=== PATIENT | male | born 1980 | race Caucasian/White ===

== ENCOUNTER 2016-06-04 14:00 | Outpatient (CLI) | payer BC, OTHER | END 2016-06-04 14:01 | disposition home or self-care (01) | DX: Z00.00 Encounter for general adult medical examination without abnormal findings (principal) ==

== ENCOUNTER 2017-03-03 08:00 | Outpatient (CLI) | payer BC, OTHER ==
[2017-03-03 19:00] LABS: BASOPHILS % (AUTO) 0.7 %; EOSINOPHILS % (AUTO) 0.2 %; HCT - HEMATOCRIT 42.7 % (42.0-52.0); HGB - HEMOGLOBIN 14.3 g/dL (14.0-18.0); LYMPHOCYTES # (AUTO) 2.3 10^3/uL (1.5-3.5); LYMPHOCYTES % (AUTO) 31.4 %; MEAN CORPUSCULAR HGB CONC 33.4 g/dL (32.0-36.0); MEAN CORPUSCULAR VOLUME 77.7 fL (80.0-94.0); MEAN PLATELET VOLUME 7.3 fL (7.4-11.4); MONOCYTES # (AUTO) 0.8 10^3/uL (0.0-1.0); MONOCYTES % (AUTO) 10.9 %; NEUTROPHILS # (AUTO) 4.2 10^3/uL (1.5-6.6); NEUTROPHILS % (AUTO) 56.8 %; NUCLEATED RED BLOOD CELLS AUTO 0.1 /100WBC; RED BLOOD COUNT 5.49 10^6/uL (4.70-6.10); UNCORRECTED WHITE BLOOD COUNT 7.4 x10^3/uL; WHITE BLOOD COUNT 7.4 x10^3/uL (4.8-10.8)
[2017-03-03 19:08] LABS: H. PYLORI IGG ANTIBODY POSITIVE (Negative); HPYLORI NEG QC Negative (Negative); HPYLORI POS QC POSITIVE (Positive)
[2017-03-03 19:22] LABS: ALBUMIN/GLOBULIN RATIO 1.2 (1.0-2.2); BILIRUBIN,TOTAL 0.3 mg/dL (0.2-1.0); CALCIUM 9.1 mg/dL (8.5-10.3); CREATININE 0.7 mg/dL (0.6-1.2); POTASSIUM 4.2 mmol/L (3.5-5.0); TOTAL PROTEIN 7.8 g/dL (6.7-8.2)
== END 2017-03-03 08:01 | disposition home or self-care (01) ==
LOC: LAB.WCP 08:00
PROVIDERS: ATTEND Family Medicine
DX: R10.9 Unspecified abdominal pain (principal); R19.7 Diarrhea, unspecified
CPT/HCPCS: 36415; 80053; 82150; 83690; 85025; 87339

== ENCOUNTER 2018-07-06 09:50 | Outpatient (CLI) | payer BC ==
--- NOTE | 2018-07-06 17:05 | XRAY Report ---
Reason: RIB PAIN,LEFT SIDED Procedure Date: 07/06/2018 Accession Number: [id number] / [id number] Procedure: WCP - Ribs 2 View LT CPT Code: FULL RESULT: EXAM: LEFT RIB RADIOGRAPHY EXAM DATE: 07/06/2018 10:02 AM. CLINICAL HISTORY: RIB PAIN,LEFT SIDED. COMPARISON: None. TECHNIQUE: 2 views. FINDINGS: Bones: No acute displaced fractures. Lungs: No dense consolidation. No pneumothorax or pleural effusions. Mediastinum: Visible contours are unremarkable Other: None. IMPRESSION: No acute radiographic abnormalities. RADIA
== END 2018-07-06 09:51 | disposition home or self-care (01) ==
LOC: DI.WCP 09:50
PROVIDERS: ATTEND Physician Assistant
DX: R07.81 Pleurodynia (principal)

== ENCOUNTER 2018-09-01 13:38 | Outpatient (CLI) | payer BC ==
--- NOTE | 2018-09-01 15:44 | XRAY Report ---
Reason: PAIN IN LEFT SHOULDER Procedure Date: 09/01/2018 Accession Number: [id number] / [id number] Procedure: WCP - Shoulder 2 View LT CPT Code: FULL RESULT: EXAM: LEFT SHOULDER RADIOGRAPHY EXAM DATE: 09/01/2018 01:47 PM. CLINICAL HISTORY: PAIN IN LEFT SHOULDER. COMPARISON: None. TECHNIQUE: 2 views. FINDINGS: Bones: Normal. No fracture or bone lesion. Joints: The glenohumeral and acromioclavicular joints are normal. Soft tissues: The visualized hemithorax is unremarkable. No soft tissue swelling. IMPRESSION: Negative shoulder radiography. RADIA
== END 2018-09-01 13:39 | disposition home or self-care (01) ==
LOC: DI.WCP 13:38
PROVIDERS: ATTEND Family Medicine
DX: M25.512 Pain in left shoulder (principal)

== ENCOUNTER 2018-11-24 11:27 | Day surgery (SDC) | payer BC ==
[2018-11-24] MEDS ORDERED: LACTATED RINGERS 1,000 ML IV ONE (11:51)
[2018-11-24] MEDS ORDERED: fentaNYL 250 MCG/5 ML VIAL IVP ONE (13:23)
[2018-11-24] MEDS ORDERED: MIDAZOLAM 2 MG/2 ML VIAL IVP ONE (13:23)
[2018-11-24 14:53] VITALS: BP 120/63
== END 2018-11-24 11:28 | disposition home or self-care (01) ==
LOC: SDS 11:27
PROVIDERS: ATTEND Surgery
PROC: 0DJD8ZZ Inspection of Lower Intestinal Tract, Via Natural or Artificial Opening Endoscopic (ICD-10-PCS; principal; 2018-11-24 12:45)
DX: Z12.11 Encounter for screening for malignant neoplasm of colon (principal); K58.0 Irritable bowel syndrome with diarrhea; E66.9 Obesity, unspecified; Z15.09 Genetic susceptibility to other malignant neoplasm; Z68.34 Body mass index [BMI] 34.0-34.9, adult
CPT/HCPCS: 45378; J3010; J7120

== ENCOUNTER 2019-12-08 08:20 | Outpatient (CLI) | payer OTHER | END 2019-12-08 08:21 | disposition home or self-care (01) | LOC: COV 08:20 | PROVIDERS: ATTEND Family Medicine | DX: R05 Cough (principal); M79.10 Myalgia, unspecified site; R53.83 Other fatigue; R07.0 Pain in throat; Z20.828 Contact with and (suspected) exposure to other viral communicable diseases ==

== ENCOUNTER 2020-10-17 05:04 | Emergency (ER) | payer OTHER ==
[2020-10-17 05:16] VITALS: BP 125/79
--- NOTE | 2020-10-17 05:22 | ED Physician Documentation ---
PD HPI UPPER EXT INJURY - Stated complaint Stated Complaint: RING STUCK - Chief complaint Chief Complaint: General - History obtained from History obtained from: Patient - History of Present Illness Location: Left, Finger (ring finger swelling with tight ring.) Type of injury: Other (Patient has a history of reasonably frequent year to carry L angioedema that a treats with medication at home. He typically sleeps without a ring just in case but had kept it on last night. He awoke with some swelling and itching,with finger swollen from ring.). No: Fall, Twist Timing - onset: Today Review of Systems Neurologic: denies: Focal weakness, Numbness PD PAST MEDICAL HISTORY - Past Medical History Past Medical History: Yes Cardiovascular: None Respiratory: Asthma Endocrine/Autoimmune: None GI: GERD : None HEENT: Other Psych: Depression Musculoskeletal: None Derm: None Other Past Medical History: Chronic idiopathic uticaria - Past Surgical History Past Surgical History: Yes General: Colonoscopy - Present Medications Home Medications: Ambulatory Orders Medication Instructions Recorded Confirmed Esomeprazole Magnesium [Nexium] 40 mg PO DAILY 10/29/15 10/17/20 Fexofenadine HCl [Leyla Allergy] 180 mg PO DAILY 10/29/15 10/17/20 Tranylcypromine Sulfate [Parnate] 30 mg PO Q8HR 10/29/15 10/17/20 lamoTRIgine [LaMICtal] 300 mg PO DAILY 10/29/15 10/17/20 traZODone [Desyrel] 100 mg PO HS 10/29/15 10/17/20 Cetirizine [ZyrTEC] 10 mg PO DAILY 11/23/18 10/17/20 - Allergies Allergies/Adverse Reactions: Allergies Allergy/AdvReac Type Severity Reaction Status Date / Time meperidine HCl * AdvReac Unknown Verified 10/17/20 05:19 [From Demerol] - Social History Does the pt smoke?: No Smoking Status: Never smoker Does the pt drink ETOH?: No Does the pt have substance abuse?: No - Immunizations Immunizations are current?: Yes PD ED PE NORMAL - Vitals Vital signs reviewed: Yes - General General: Alert and oriented X 3, No acute distress, Well developed/nourished - HEENT HEENT: Other (no oral angioedema. ) - Respiratory Respiratory: No respiratory distress, Clear bilaterally - Derm Derm: Normal color, Warm and dry, Other (mild general hives.) - Extremities Extremities: Other (The left ring finger shows moderate swelling with his normal ring in place. There does not seem to be too much swelling to anticipate getting the ring off with just wrapping or lubrication. He is okay with cutting it off.) - Neuro Neuro: No motor deficit, No sensory deficit, Other (mild julius color of skin distal to the ring. ) Results - Vitals Vitals: Vital Signs - 24 hr 10/17/20 05:14 Temperature 36.6 C Heart Rate 98 Respiratory 18 Rate Blood Pressure 125/79 O2 Saturation 100 Oxygen O2 Source Room air PD MEDICAL DECISION MAKING - ED course Complexity details: considered differential (The ring is cut off by technology solutions architect without any complications. He states he did not need any extra medications for his hives; has meds at home for it. ), d/w patient Departure - Departure Disposition: 01 Home, Self Care Clinical Impression: Urticaria, Ring or other jewelry causing external constriction, initial encounter, Finger swelling Condition: Stable Record reviewed to determine appropriate education?: Yes Follow-Up: Theresa Lindsey DO [Primary Care Provider] - Comments: Continue usual medications. A jeweler should be able to restore the ring back with minimal blemishing. You could also consider a silicone type ring as an alternative or backup. Discharge Date/Time: 10/17/20 06:18
== END 2020-10-17 06:18 | disposition home or self-care (01) ==
LOC: ED 05:04
DX: S60.445A External constriction of left ring finger, initial encounter (principal); W49.04XA Ring or other jewelry causing external constriction, initial encounter; L50.1 Idiopathic urticaria
CPT/HCPCS: 99282

== ENCOUNTER 2022-02-02 09:13 | Outpatient (CLI) | payer OTHER ==
[2022-02-02 09:36] LABS: BASOPHILS % (AUTO) 0.1 %; EOSINOPHILS % (AUTO) 0.1 %; HCT - HEMATOCRIT 44.5 % (42.0-52.0); HGB - HEMOGLOBIN 14.9 g/dL (14.0-18.0); LYMPHOCYTES # (AUTO) 2.2 10^3/uL (1.5-3.5); LYMPHOCYTES % (AUTO) 29.6 %; MEAN CORPUSCULAR HEMOGLOBIN 27.5 pg (27.0-31.0); MEAN CORPUSCULAR HGB CONC 33.5 g/dL (32.0-36.0); MEAN CORPUSCULAR VOLUME 82.3 fL (80.0-94.0); MEAN PLATELET VOLUME 8.7 fL (7.4-11.4); MONOCYTES # (AUTO) 0.7 10^3/uL (0.0-1.0); MONOCYTES % (AUTO) 9.1 %; NEUTROPHILS # (AUTO) 4.6 10^3/uL (1.5-6.6); NEUTROPHILS % (AUTO) 60.2 %; PLT - PLATELET COUNT 244 10^3/uL (130-450); RED BLOOD COUNT 5.41 10^6/uL (4.70-6.10); RED CELL DISTRIBUTION WIDTH 13.4 % (12.0-15.0); WHITE BLOOD COUNT 7.6 x10^3/uL (4.8-10.8)
[2022-02-02 09:49] LABS: BILIRUBIN,URINE NEGATIVE (NEGATIVE); GLUCOSE, URINE (UA) NEGATIVE (NEGATIVE); KETONES,URINE (UA) NEGATIVE (NEGATIVE); LEUKOCYTE ESTERASE, URINE NEGATIVE (NEGATIVE); NITRITE,URINE NEGATIVE (NEGATIVE); OCCULT BLOOD,URINE NEGATIVE (NEGATIVE); PROTEIN,URINE NEGATIVE (NEGATIVE); UROBILINOGEN,URINE 0.2 (NORMAL) E.U./dL (NORMAL)
[2022-02-02 09:57] LABS: % IRON SATURATION 16 % (20-50); ALBUMIN 4.3 g/dL (3.2-5.5); ALBUMIN/GLOBULIN RATIO 1.2 (1.0-2.2); ALKALINE PHOSPHATASE 74 IU/L (42-121); ALT ALANINE AMINOTRANSFERASE 64 IU/L (10-60); AST ASPARTATE AMINOTRANSFERASE 44 IU/L (10-42); BILIRUBIN,TOTAL 0.6 mg/dL (0.2-1.0); BUN - BLOOD UREA NITROGEN 15 mg/dL (6-20); CALCIUM 9.4 mg/dL (8.5-10.3); CARBON DIOXIDE - CO2 27 mmol/L (21-32); CHLORIDE 103 mmol/L (101-111); CHOL/HDL RATIO 4.4 (<5.0); CHOLESTEROL 226 mg/dL; CREATININE 0.9 mg/dL (0.6-1.2); GFR - MDRD 93 (>89); GLUCOSE 90 mg/dL (70-100); HDL CHOLESTEROL 51 mg/dL; IRON 69 ug/dL (45-182); LDL CHOLESTEROL,CALCULATED 151 mg/dL; POTASSIUM 4.1 mmol/L (3.5-5.0); SODIUM 138 mmol/L (135-145); TOTAL IRON BINDING CAPACITY 431 ug/dL (250-450); TOTAL PROTEIN 7.8 g/dL (6.7-8.2); TRANSFERRIN 308 mg/dL (180-329); TRIGLYCERIDES 122 mg/dL; VLDL CHOLESTEROL 24 mg/dL
[2022-02-02 10:02] LABS: BACTERIA,URINE Rare /HPF (None Seen); CLARITY,URINE CLEAR (CLEAR); MUCUS,URINE Few Strands; RBC,URINE 0-5 /HPF (0-5); SQUAMOUS EPITHELIAL CELL,UR RARE Squamous (<= Few); WBC,URINE 0-3 /HPF (0-3)
[2022-02-02 10:06] LABS: THYROID STIMULATING HORMONE 1.77 uIU/mL (0.34-5.60)
[2022-02-02 10:12] LABS: FERRITIN 58.2 ng/mL (23.9-336.2)
== END 2022-02-02 09:14 | disposition home or self-care (01) ==
LOC: LAB 09:13
PROVIDERS: ATTEND Physician Assistant
DX: D50.9 Iron deficiency anemia, unspecified (principal); Z68.38 Body mass index [BMI] 38.0-38.9, adult; Z15.09 Genetic susceptibility to other malignant neoplasm; Z13.220 Encounter for screening for lipoid disorders; Z12.5 Encounter for screening for malignant neoplasm of prostate
CPT/HCPCS: 36415; 80053; 80061; 81001; 82728; 83540; 83721; 84153; 84443; 84466; 85025

== ENCOUNTER 2022-04-29 08:05 | Day surgery (SDC) | payer OTHER ==
[2022-04-29] MEDS ORDERED: LACTATED RINGERS 1,000 ML IV ONE (08:23)
--- NOTE | 2022-04-29 08:53 | ANESTHESIA ---
Pre-Anesthesia VS, & Labs - Diagnosis ceron syndrome, screening colonoscopy, GERD - Procedure colonoscopy, EGD Vital Signs: Temp Pulse Resp BP Pulse Ox O2 Flow Rate 36.1 C L 103 H 18 122/82 H 96 04/29/22 08:15 04/29/22 08:15 04/29/22 08:15 04/29/22 08:15 04/29/22 08:15 Height: 5 ft 7 in Weight (kg): 108 kg Body Mass Index: 37.3 BMI Classification: Obese - NPO Other (prep as instructed) Home Medications and Allergies Home Medications: Ambulatory Orders Albuterol Sulf [Ventolin Hfa Inhaler] 1 - 2 puffs INH Q4HR PRN 04/28/22 Azelastine/Fluticasone [Azelastin-Flutic 137-50Mcg Spr] 23 gm NS BID 04/28/22 Dextroamphetamine/Amphetamine [Adderall 10 mg Tablet] 10 mg PO DAILY 04/28/22 Montelukast [Singulair] 10 mg PO QPM 04/28/22 Omalizumab [Xolair] 150 mg SQ ONCE 04/28/22 Parnate 20 mg PO BID 04/28/22 buPROPion HCL [Bupropion HCl] 200 mg PO DAILY 04/28/22 clonazePAM [Clonazepam] 0.5 mg PO HS 04/28/22 Cyclosporine, Modified [Cyclosporine Modified] 100 mg PO DAILY 04/29/22 lamoTRIgine [LaMICtal] 150 mg PO DAILY 10/29/15 traZODone [Desyrel] 100 mg PO HS 10/29/15 Albuterol Sulf [Ventolin Hfa Inhaler] 1 - 2 puffs INH Q4HR PRN 04/28/22 Azelastine/Fluticasone [Azelastin-Flutic 137-50Mcg Spr] 23 gm NS BID 04/28/22 Dextroamphetamine/Amphetamine [Adderall 10 mg Tablet] 10 mg PO DAILY 04/28/22 Montelukast [Singulair] 10 mg PO QPM 04/28/22 Omalizumab [Xolair] 150 mg SQ ONCE 04/28/22 Parnate 20 mg PO BID 04/28/22 buPROPion HCL [Bupropion HCl] 200 mg PO DAILY 04/28/22 clonazePAM [Clonazepam] 0.5 mg PO HS 04/28/22 Cyclosporine, Modified [Cyclosporine Modified] 100 mg PO DAILY 04/29/22 Allergies/Adverse Reactions: Allergies Allergy/AdvReac Type Severity Reaction Status Date / Time meperidine HCl * AdvReac Unknown Verified 04/29/22 08:29 [From Demerol] NSAIDS (Non-Steroidal AdvReac Edema Verified 04/29/22 08:29 Anti-Inflamma Anes History & Medical History - Anesthetic History Anesthesia Complications: reports: No previous complications - Medical History Cardiovascular: reports: None Pulmonary: reports: Asthma Gastrointestinal: reports: GERD Urinary: reports: None Musculoskeletal: reports: None Endocrine/Autoimmune: reports: None Skin: reports: None Smoking Status: Never smoker - Surgical History General: reports: Colonoscopy Exam General: Alert, Oriented x3 Dental: WNL Mouth Opening: Greater than 4 Fingerbreadths Neck Mobility: Normal Mallampati classification: II Thyromental Distance: greater than 6 cm Respiratory: Lungs clear Cardiovascular: Regular rate Plan Anesthesia Type: Total IV Consent for Procedure(s) Verified and Reviewed: Yes Code Status: Attempt Resuscitation ASA classification: 2-Mild systemic disease Is this case an emergency?: No
[2022-04-29] MEDS ORDERED: LIDOCAINE-MPF 2% 5 ML VIAL ONE (09:39)
[2022-04-29] MEDS ORDERED: PROPOFOL 500 MG/50 ML 500 MG/50 ML VIAL ONE (09:39)
[2022-04-29] MEDS ORDERED: LACTATED RINGERS 500 ML IV ONE (10:20)
--- NOTE | 2022-04-29 10:38 | ANESTHESIA POST OP EVALUATION ---
Anesthesia Post Eval - Post Anesthesia Eval Vitals: Last Vital Signs Temp 36.2 C L 04/29/22 10:27 Pulse 78 04/29/22 10:27 Resp 16 04/29/22 10:27 BP 98/62 04/29/22 10:27 Pulse Ox 96 04/29/22 10:27 O2 Flow Rate CV Function Including HR & BP: Stable Pain Control: Satisfactory Nausea & Vomiting: Negative Mental Status: Baseline Respiratory Status: Airway Patent Hydration Status: Satisfactory Anesthesia Complications: None
[2022-04-29 10:44] VITALS: BP 96/58
== END 2022-04-29 08:06 | disposition home or self-care (01) ==
LOC: SDS 08:05
PROVIDERS: ATTEND Surgery
PROC: 0DJD8ZZ Inspection of Lower Intestinal Tract, Via Natural or Artificial Opening Endoscopic (ICD-10-PCS; principal; 2022-04-29 09:15)
PROC: 0DB78ZX Excision of Stomach, Pylorus, Via Natural or Artificial Opening Endoscopic, Diagnostic (ICD-10-PCS; 2022-04-29 09:15)
DX: Z12.11 Encounter for screening for malignant neoplasm of colon (principal); Z12.89 Encounter for screening for malignant neoplasm of other sites; Z15.09 Genetic susceptibility to other malignant neoplasm; Z84.81 Family history of carrier of genetic disease; K64.8 Other hemorrhoids; K29.50 Unspecified chronic gastritis without bleeding; J45.909 Unspecified asthma, uncomplicated; K25.9 Gastric ulcer, unspecified as acute or chronic, without hemorrhage or perforation; E66.9 Obesity, unspecified; Z68.37 Body mass index [BMI] 37.0-37.9, adult
CPT/HCPCS: 43239; 45378; J7120

== ENCOUNTER 2023-01-30 20:05 | Outpatient (CLI) | payer OTHER | END 2023-01-30 20:06 | disposition home or self-care (01) | LOC: SC 20:05 | PROVIDERS: ATTEND Nurse Practitioner Family | DX: G47.10 Hypersomnia, unspecified (principal); F32.A Depression, unspecified | CPT/HCPCS: 95810 ==

== ENCOUNTER 2023-02-01 10:07 | Outpatient (CLI) | payer OTHER ==
[2023-02-01 10:37] LABS: ALBUMIN 4.6 g/dL (3.2-5.5); ALBUMIN/GLOBULIN RATIO 1.5 (1.0-2.2); BILIRUBIN,TOTAL 0.4 mg/dL (0.2-1.0); CALCIUM 9.5 mg/dL (8.5-10.3); CREATININE 0.7 mg/dL (0.6-1.3); POTASSIUM 4.2 mmol/L (3.5-4.5); TOTAL PROTEIN 7.6 g/dL (6.4-8.9)
== END 2023-02-01 10:08 | disposition home or self-care (01) ==
LOC: LAB 10:07
PROVIDERS: ATTEND Physician Assistant
DX: R74.8 Abnormal levels of other serum enzymes (principal); Z79.899 Other long term (current) drug therapy
CPT/HCPCS: 36415; 80053

== ENCOUNTER 2023-03-16 09:51 | Outpatient (CLI) | payer OTHER ==
--- NOTE | 2023-03-16 10:17 | Sleep Patient Instructions ---
Sleep Center Visit Summary - Patient Visit Information Reason for Visit: Sleep study followup - Patient Instructions Instructions Attached: Snoring Tips Prevent Additional Instructions: Your sleep study today was negative for significant sleep disordered breathing. You were found to have episodes of snoring. There are different ways to control snoring including weight loss, oral devices made by a dentist or surgical options through ENT specialist. You should not use oral devices that do not fit properly because they can affect your bite. You should also check insurance coverage of oral devices for snoring because they may not be cover well. You may obtain a referral to an ENT specialist through your primary provider. Follow-up as needed. - Clinic Information Contact: [facility] [address] [place] [address] [email or web address] T: [phone]
--- NOTE | 2023-03-16 10:20 | SLEEP CARE CONSULTATION ---
Information from patient questionnaire entered by Alicia Johnson. I have reviewed and concur with the information entered by Alicia Johnson. This document represents the service I personally performed and the decisions made by , Domenica Linares ARNP. History of Present Illness Service Date and Time: 03/16/2023 0951 Initial Henley Sleepiness Scale score: 15 (12/27/22) Current Henley Sleepiness Scale score: 12 Additional HPI information: JOAQUÍN MCINTYRE returns for follow up and results of the recently performed polysomnography. The patient was informed of the following findings: No significant sleep disordered breathing with an average AHI of 1.2 and bigg oxygen saturation of 89%. I explained the pathophysiology behind obstructive sleep apnea. Patient does not have sleep apnea and was advised how weight gain could increase the risk of developing sleep apnea in the future. I strongly encouraged the patient to lose weight. Patient has light to loud snoring. Snoring can be reduced by weight loss. Weight loss is best achieved with diet consult. Patient instructed to contact PCP for referral. Snoring can also be treated with an oral appliance from a dentist. Advised to check insurance coverage. In addition, an ENT evaluation can be do to see if other treatment is indicated. Patient does not drink alcohol. Patient was cautioned about risks of drowsy driving until sleepiness symptoms resolve. Patient denies drowsy driving. Sleep Study - Results Type of Sleep Study: Polysomnography (COMPLETED 01/30/23) Prior sleep studies: No Polysomnography/Home Sleep Study results: IMPRESSION: The quality of the study is good. 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 The sleep architecture was relatively normal considering the first-night effect. Respiratory monitoring showed no significant sleep disordered breathing (AHI = 1.3) or hypoxia (bigg oxygen saturation of 89%). The patient slept mostly supine (supine AHI = 1.5; non-supine = 0.00). Snore was light to loud in intensity. There was no significant periodic leg movement of sleep. Cardiac rhythm was normal sinus rhythm without significant arrhythmia. No abnormal behavior (parasomnia) observed during the night. Allergies and Home Medications Known drug allergies: Yes (as listed) Drug allergies reviewed: Yes Home medication list reviewed: Yes (Augmentin for 2 week for sinus infection) Allergy and home medication list: Allergies meperidine HCl * [From Demerol] Adverse Reaction (Verified 03/15/23 08:53) Unknown interacts with a current medication pt is taking NSAIDS (Non-Steroidal Anti-Inflamma Adverse Reaction (Verified 03/15/23 08:53) Edema angioedema Review of Systems Review of systems same as previous: Yes (no changes) Physical Exam Vital signs obtained and entered by: DOMENICA CHÁVEZ Blood Pressure: 100/66 Cuff size: wrist (left) Heart Rate: 85 O2 Saturation: 96 Height: 5 ft 7 in Weight: 205 lb 3.2 oz Body Mass Index: 32.1 BMI Classification: Obese Impression and Plan 1. Snoring but no significant sleep disordered breathing. Patient advised that often weight loss will reduce snoring as well as apnea risk. An oral appliance can also be used for snoring. This would require a dental consultation. Patient cautioned not to use other online appliances as can cause bite issues. Patient is advised to check if insurance will cover. An ENT consult can also be helpful to determine if any other treatment is an option. 2. Obesity, unspecified. Currently patients BMI is 32.1. Obesity increases the risk of apnea, CPAP pressure requirements and overall health risks especially cardiovascular and diabetes. Thus patient is advised to lose weight. * Attempt to lose weight * The patient is cautioned about driving when sleepy. * Return as needed for follow up. Counseling Topics: Weight loss health impact Follow up with Sleep Care in: as needed Visit Type: In Office Time Spent with Patient (minutes): 20 Provider Statement: I spent 100% of the Face to Face Visit with the patient with greater than 50% spent counseling the patient and coordination of care.
[2023-03-16 10:24] VITALS: BP 100/66; O2SAT 96
== END 2023-03-16 09:52 | disposition home or self-care (01) ==
LOC: SC 09:51
PROVIDERS: ATTEND Nurse Practitioner Family
DX: R06.83 Snoring (principal); E66.9 Obesity, unspecified; Z68.32 Body mass index [BMI] 32.0-32.9, adult
CPT/HCPCS: 99212; 99213

== ENCOUNTER 2023-05-18 08:00 | Outpatient (CLI) | payer OTHER | END 2023-05-18 23:59 | disposition home or self-care (01) | LOC: LAB.N 08:00 | PROVIDERS: ATTEND Family Medicine | DX: R19.7 Diarrhea, unspecified (principal); Z15.09 Genetic susceptibility to other malignant neoplasm | CPT/HCPCS: 83993; 87045; 87046; 87329; 87427; 87493 ==